=== PATIENT | female | born 1945 | race Caucasian/White ===

== ENCOUNTER 2016-12-11 11:50 | Emergency (ER) | payer MEDICARE, OTHER ==
[2016-12-11] MEDS ORDERED: ONDANSETRON ODT 4 MG TAB.RAPDIS ONE (12:26)
--- NOTE | 2016-12-11 13:31 | ER PHYSICIAN DOCUMENTATION ---
Physician Documentation [facility] Name:Shari Doyle Age:71 yrs Sex:Female :1945 Arrival Date:12/11/2016 Time:11:50 Bed3 Private MD: Esau Cardona Disposition: 12/11 13:20 Chart complete. cd Disposition: 12/11/16 13:18 Discharged to Home/Self Care. Impression: Nausea, Vomiting - Dehydration, Gastroenteritis. - Condition is Good. - Discharge Instructions: DEHYDRATION (6y-Adult), GASTROENTERITIS, Viral [6y-Adult], VOMITING (6y-Adult). - Prescriptions for Zofran 4 mg Oral - take 1 tablet by ORAL route every 6 hours .; 10 tablet. - Medical Reconciliation form form. - Follow up: Wilma May MD; When: 2 - 3 days; Reason: Recheck today's complaints, Continuance of care. - Problem is new. - Symptoms are resolved. HPI: 11:55 This 71 yrs old Female presents to ER via Private Vehicle with complaints of cd Nausea/Vomiting, Dizziness. 11:55 The patient presents to the emergency department with nausea, that is moderate, with cd vomiting, a few times, while at [employer], described as clear fluid, without any complaints of abdominal pain. Onset: The symptom(s)/episode began/occurred acutely, this morning. Possible causes: sick contacts, by family, granddaughter, 7 days ago was exposed to [place] Virus. Associated signs and symptoms: Pertinent positives: anorexia, nausea, vomiting, Pertinent negatives: abdominal pain, diarrhea, dysuria, fever, GI bleeding, hematuria. Severity of symptoms: At their worst the symptoms were moderate in the emergency department the symptoms are unchanged. The patient has not experienced similar symptoms in the past. The patient has not recently seen a physician. Historical: - Allergies: No known drug Allergies; Mild cognitive impairment with memory loss; Dementia; Hypercholesteremia; Allergy to insects and arachnids; Generalized osteoarthritis, multiple sites; Lumbago; Neutropenia, NOS; Travel sickness; Viral warts; - Home Meds: 1. rivastigmine 4.5 mg oral cap 1 cap 2 times per day with food 2. restasis twice a day 3. venlafaxine 75 mg oral cp24 1 cap once daily with food 4. hydroxychloroquine 200 mg oral tab 1 tab once daily 5. aspirin 81 mg oral tab 1 tab once daily 6. tylenol 500 mg 2 tabs bid 7. transderm scop 8. metrogel 1% bid to face 9. Malarone 250-100 mg oral tab 1 tab once daily 10. epi pen - PMHx: DEPRESSION; Memory loss; Microscopic hematuria; Nausea; Osteopenia; Thoracic scoliosis; Mixed connective tissue disease; Sicca complex; Rosacea; Actinic keratosis; atopic dermatitis; Allergic rhinitis; Hearing loss; Glaucoma, suspect; Cataract, bilat; Insomnia; - PSHx: ACL repair; right breast bx; - Tetanus: < 10 years. - Ebola Screening: : Patient negative for fever greater than or equal to 101.5 degrees Fahrenheit, and additional compatible Ebola Virus Disease symptoms. Patient denies exposure to infectious person. Patient denies travel to an Ebola-affected area in the 21 days before illness onset. No symptoms or risks identified at this time. . - Immunization history: Pneumococcal vaccine is up to date, Flu Vaccine < 1 year. - Social history: Smoking status: Patient states was never smoker of tobacco. Patient uses alcohol One small glass of wine daily. ROS: 12:34 ENT: Negative for injury, pain, epistaxis and discharge. cd Neck: Negative for injury, pain, stiffness and swelling. Cardiovascular: Negative for chest pain, palpitations, edema and pleuritic pain. Respiratory: Negative for shortness of breath, dyspnea on exertion, cough, sputum production, wheezing, hemoptysis and pleuritic chest pain. Back: Negative for injury, pain or muscle spasms. : Negative for injury, bleeding, discharge, dysuria, frequency, urgency and swelling. MS/Extremity: Negative for injury, deformity, edema, calf tenderness, pain or coldness. 12:34 Skin: Negative for injury, rash, itching and discoloration. cd 12:34 Constitutional: Positive for poor PO intake, Negative for chills, fever. 12:34 Abdomen/GI: Positive for nausea, vomiting, anorexia, Negative for abdominal pain, diarrhea, abdominal distension, hematemesis, black/tarry stool, rectal bleeding. 12:34 All other systems are negative. Exam: ENT: Nares patent. No nasal discharge, no septal abnormalities noted. Tympanic membranes are normal and external auditory canals are clear. Oropharynx with no redness, swelling, or masses, exudates, or evidence of obstruction, uvula midline. Mucous membranes dry Back: No spinal tenderness. No costovertebral tenderness. Full range of motion. Skin: Warm, dry with normal turgor. Normal color with no rashes, no lesions, and no evidence of cellulitis. MS/ Extremity: Pulses equal, no cyanosis. Neurovascular intact. Full, normal range of motion. 12:34 Neuro: Awake and alert, GCS 15, oriented to person, place, time, and situation. cd Cranial nerves II-XII grossly intact. Motor strength 5/5 in all extremities. Sensory grossly intact. Cerebellar exam normal. Normal gait. 12:34 Constitutional: The patient appears alert, awake, non-diaphoretic, well developed, well nourished, in obvious distress, mildly distressed. 12:34 Cardiovascular: Rate: bradycardic, Rhythm: regular, Pulses: no pulse deficits are appreciated, Heart sounds: normal, Edema: is not appreciated. 12:34 Respiratory: the patient does not display signs of respiratory distress, Respirations: normal, no acute changes, Breath sounds: are normal, clear throughout. 12:34 Abdomen/GI: Inspection: abdomen appears normal, Bowel sounds: normal, active, Palpation: abdomen is soft and non-tender, in all quadrants, Rectal exam: the exam is deferred, Indicators: Tony's sign is negative. Vital Signs: 12:00 BP 153 / 66; Pulse 55; Resp 20; Temp 96.9; Pulse Ox 98% on R/A; Pain 1/10; rs 13:12 BP 123 / 60; Pulse 58; Resp 18; Pulse Ox 96% on R/A; Pain 0/10; rs MDM: 12:05 Data interpreted: Pulse oximetry: on room air is 96 %. Interpretation: normal. cd 12:34 Differential diagnosis: gastritis, viral gastroenteritis, gastroenteritis, Dehydration, cd [place] Virus exposure. 13:15 Data reviewed: vital signs, nurses notes, old medical records, and as a result, I will cd discharge patient, administer IV fluids, NS bolus, NS maintenence. 13:17 Patient medically screened. cd 13:20 Counseling: I had a detailed discussion with the patient and/or guardian regarding: the cd historical points, exam findings, and any diagnostic results supporting the discharge/admit diagnosis, the need for outpatient follow up, for a recheck, with the patient's primary care provider, to return to the emergency department if symptoms worsen or persist or if there are any questions or concerns that arise at home. Response to treatment: the patient's symptoms have markedly improved after treatment, the patient's symptoms have resolved after treatment, the patient's condition has returned to base line, the patient is now symptom free, patient is well hydrated. and as a result, I will discharge patient. Dispensed Medications: 12:20 Drug: Zofran 4 mg; Route: PO; rs 13:29 Follow up: Response: Marked relief of symptoms rs Signatures: Tamera Masters RN RN rs Esau Maharaj MD MD cd
--- NOTE | 2016-12-11 13:31 | ER NURSING DOCUMENTATION ---
Nurse's Notes [facility] Name:Shari Doyle Age:71 yrs Sex:Female :1945 Arrival Date:12/11/2016 Time:11:50 Bed3 Private MD: Diagnosis:Nausea;Vomiting - Dehydration;Gastroenteritis Presentation: 12/11 11:53 Presenting complaint: Patient states: N/V, exposure to [place] virus one week ago. rs Illness started this morning while she was at [employer]. Earlier she felt well, ate breakfast. She vomited twice at [employer] and once here. No diarrhea, no f/c. Slight epigastric discomfort. No PEACE, no dizzyness. No CP. states: States she has memory problems, and difficulty expressing herself. Is generally well, sees Dr May. Transition of care: patient was not received from another setting of care. 11:53 Acuity: JANETTE 3 rs 11:53 Method Of Arrival: Private Vehicle rs Triage Assessment: 12:15 General: Appears cachectic, slender, well developed, well nourished, well groomed, rs Behavior is anxious, cooperative, pleasant, quiet. Pain: Complains of pain in Mild epigastric discomfort. Pain does not radiate. Pain currently is 2 out of 10 on a pain scale. Neuro: No deficits noted. Level of Consciousness is awake, alert, Oriented to person, place, time, event, Center Director are equal bilaterally Moves all extremities. Cardiovascular: No deficits noted. Capillary refill < 3 seconds Heart tones S1 S2 present. Respiratory: No deficits noted. Airway is patent Respiratory effort is even, unlabored, Respiratory pattern is regular, symmetrical, Breath sounds are clear bilaterally. Denies shortness of breath. GI: Abdomen is flat, non- distended Bowel sounds hypoactive in right upper quadrant, left upper quadrant, right lower quadrant and left lower quadrant Reports nausea, vomiting, Denies diarrhea. Derm: No deficits noted. Skin is pink, warm & dry. Historical: - Allergies: No known drug Allergies; Mild cognitive impairment with memory loss; Dementia; Hypercholesteremia; Allergy to insects and arachnids; Generalized osteoarthritis, multiple sites; Lumbago; Neutropenia, NOS; Travel sickness; Viral warts; - Home Meds: 1. rivastigmine 4.5 mg oral cap 1 cap 2 times per day with food 2. restasis twice a day 3. venlafaxine 75 mg oral cp24 1 cap once daily with food 4. hydroxychloroquine 200 mg oral tab 1 tab once daily 5. aspirin 81 mg oral tab 1 tab once daily 6. tylenol 500 mg 2 tabs bid 7. transderm scop 8. metrogel 1% bid to face 9. Malarone 250-100 mg oral tab 1 tab once daily 10. epi pen - PMHx: DEPRESSION; Memory loss; Microscopic hematuria; Nausea; Osteopenia; Thoracic scoliosis; Mixed connective tissue disease; Sicca complex; Rosacea; Actinic keratosis; atopic dermatitis; Allergic rhinitis; Hearing loss; Glaucoma, suspect; Cataract, bilat; Insomnia; - PSHx: ACL repair; right breast bx; - Tetanus: < 10 years. - Ebola Screening: : Patient negative for fever greater than or equal to 101.5 degrees Fahrenheit, and additional compatible Ebola Virus Disease symptoms. Patient denies exposure to infectious person. Patient denies travel to an Ebola-affected area in the 21 days before illness onset. No symptoms or risks identified at this time. . - Immunization history: Pneumococcal vaccine is up to date, Flu Vaccine < 1 year. - Social history: Smoking status: Patient states was never smoker of tobacco. Patient uses alcohol One small glass of wine daily. Screenin:10 Infectious Disease Risk None. Abuse screen: Denies threats or abuse. Nutritional rs screening: No deficits noted. Assessment: 13:26 Reassessment: Patient states feeling better. Patient states symptoms have improved. rs Vital Signs: 12:00 BP 153 / 66; Pulse 55; Resp 20; Temp 96.9; Pulse Ox 98% on R/A; Pain 1/10; rs 13:12 BP 123 / 60; Pulse 58; Resp 18; Pulse Ox 96% on R/A; Pain 0/10; rs ED Course: 11:51 Patient arrived in ED. jt 11:53 Tamera Masters, RN is Primary Nurse. rs 12:00 Notified ED Physician of patient's arrival and chief complaint. Dr. Maharaj notified. Arm rs band placed on Bed in low position Call Light in Reach Gowned HOB Elevated Side rails up x1 Emesis basin given. Family accompanied patient. 12:00 Pulse Ox - RN Monitoring Only. Door closed. Noise minimized. Lights dimmed. Verbal rs reassurance given. 12:06 Esau Maharaj MD is Attending Physician. cd 12:30 Resting quietly. rs 12:32 Triage completed. rs 13:17 Wilma May MD is Referral Physician. cd Administered Medications: 12:20 Drug: Zofran 4 mg; Route: PO; rs 13:29 Follow up: Response: Marked relief of symptoms rs Outcome: 13:18 Discharge ordered by MD. cd 13:27 Discharged to home via wheelchair, with significant other. rs 13:27 Condition: improved 13:27 Discharge instructions given to patient, family, Instructed on discharge instructions, follow up and referral plans. medication usage, Demonstrated understanding of instructions, medications, Prescriptions given X 1. 13:30 Patient left the ED. rs 03 11:04 Discharge F/U Call: Spoke with: patient. Overall Care on a scale of 1-10 with 10 ma being the best care, you rate our care as: Other comments: States is very pleased to get call States "they were so good" Very satisfied with care Signatures: Tamera Masters RN RN rs Fabiola Arrington RN RN ma Daley, Chris, MD MD cd Tennant, Joanne jt
== END 2016-12-11 13:31 | disposition home or self-care (01) ==
LOC: ER 11:50
DX: E86.0 Dehydration (principal); K52.89 Other specified noninfective gastroenteritis and colitis; Z79.82 Long term (current) use of aspirin; Z79.899 Other long term (current) drug therapy
CPT/HCPCS: 99283